=== PATIENT | female | born 1965 | race African-American/Black ===

== ENCOUNTER → 2018-10-07 | Outpatient (CLI) | payer OTHER ==
[~2018-10-07] MED LIST: REBIF 44 M44 MCG/0.5 SQ
== END ==
LOC: M.RAD 10:00
DX: Z12.31 Encounter for screening mammogram for malignant neoplasm of breast (principal)

== ENCOUNTER → 2020-07-06 | Outpatient (CLI) | payer OTHER | LOC: M.RAD 14:12 | PROVIDERS: ATTEND Family Medicine | DX: Z12.31 Encounter for screening mammogram for malignant neoplasm of breast (principal) ==